=== PATIENT | female | born 1970 | race Caucasian/White ===

== ENCOUNTER 2024-05-24 15:55 | Emergency (ER) | payer OTHER ==
[~2024-05-24] VITALS: Ht 160 cm; Wt 67.6 kg
[2024-05-24 16:03] VITALS: BP_SYST 143; PULSE 78; RESP 16; TEMP 98.2; O2SAT 98
[2024-05-24] MEDS ORDERED: TRAM50TA2 PO ×2 (18:23→20:08)
[2024-05-24] MEDS: PROCHLORPERAZINE EDISYLATE 10 MG/2 ML VIAL IM ONE (18:59)
[2024-05-24] MEDS: KETOROLAC TROMETHAMINE 60 MG/2 ML VIAL IM ONE (19:00)
[2024-05-24 19:11] VITALS: BP_SYST 143; PULSE 78; RESP 16; TEMP 98.2; O2SAT 98
== END 2024-05-24 19:11 | disposition home or self-care (01) ==
LOC: SED 15:55
DX: G44.209 Tension-type headache, unspecified, not intractable (principal); R20.0 Anesthesia of skin; Z79.899 Other long term (current) drug therapy
CPT/HCPCS: 99285; 70450; 96372; J1885; J0780